=== PATIENT | male | born 1995 | race African-American/Black ===

== ENCOUNTER 2020-02-09 10:59 | Observation (INO) | payer OTHER, SELFPAY ==
[2020-02-09] VITALS (12 sets, daily range): BP systolic 121–168; BP diastolic 67–92; PULSE 55–90; RESP 10–16; TEMP 36.7–37.1; O2SAT 92–99; BMI 33.3
--- NOTE | 2020-02-09 | PATH_ITS ---
[facility] Accession Number: [id number] . 01 Material submitted: . appendix - APPENDIX . 02 Diagnosis: Appendix, Appendectomy: Acute appendicitis with serositis. No evidence of neoplasia. [facility] 02/11/2020 1226 Local . 02 Electronically signed: . Maida Palacios MD, Pathologist NPI- [id number] . 01 Gross description: . Received in formalin, labeled appendix, is an intact appendix (length-6.2 cm, diameter-1.0 cm) with mcfadden-pink smooth shiny serosa and attached mesoappendix (up to 0.8 cm in depth). The resection margin is received stapled. The lumen contains mckenzie-pink solid soft material. The wall is up to 0.3 cm thick. No nodules, masses or lesions are identified. The resection margin is inked blue. Section code: (A1) resection margin en face and national sales representative serial sections; (A2) one-half of the bivalved tip. ([id number]) /MRV 02/10/2020 1114 Local . 02 Pathologist provided ICD-10: K35.80 . 02 CPT . 441343 Performed at: 01 [facility] [address], [place], [place] [id number] MD Rick Leo MD Phone: [phone] Performed at: 02 [facility] [address] [place], [place] [id number] MD Maida Palacios MD Phone: [phone]
--- NOTE | 2020-02-09 13:24 | DI.CT.S_ITS ---
PROCEDURE: CT ABDOMEN PELVIS W CON INDICATIONS: Right lower quadrant tenderness question appy TECHNIQUE: After the administration of intravenous contrast, 5 mm thick sections acquired from the diaphragm to the symphysis. 5 mm coronal and sagittal reformats were acquired. For radiation dose reduction, the following was used: automated exposure control, adjustment of mA and/or kV according to patient size. COMPARISON: None. FINDINGS: Image quality: Excellent. ABDOMEN: Lung bases: Lung bases are clear. Heart size is normal. Solid organs: Liver is enlarged with steatosis. Gallbladder is contracted. Punctate area of low attenuation is noted in the posterior right hepatic lobe on series 3 image 28, too small to definitively characterize. Additional punctate areas are also noted within the remaining portions of the liver, also too small to definitively characterize. No priors are available for comparison.. Biliary system is non dilated. Pancreas enhances normally. Spleen is normal in size and enhancement. 6 mm nodularity of the left adrenal gland is noted. Kidneys demonstrate normal size and enhancement, without hydronephrosis. Peritoneum and bowel: Bowel loops demonstrate normal wall thickness and caliber. No free fluid or air. The appendix is partially obscured. However, partially visualized portion seen best on sagittal and coronal images appear enlarged, measuring approximately 9 mm. Minimal surrounding inflammatory change is noted. No appendicolith. Nodes and vessels: No retroperitoneal or mesenteric adenopathy by size criteria. Aorta and inferior vena cava are normal in size. Miscellaneous: No ventral hernias. PELVIS: Genitourinary: Bladder wall thickness is normal. Miscellaneous: No inguinal hernias or adenopathy. Bones: No suspicious bony lesions. No vertebral body compression fractures. IMPRESSION: 1. Partially visualized portions of the appendix are enlarged with surrounding inflammation raising concern for appendicitis. No appendicolith. The above findings were discussed with Dr. Ryanne Carlton on 02/09/20 at 2:20 PM. Dictated by: Irma Limon M.D. on 02/09/2020 at 14:20 Approved by: Irma Limon M.D. on 02/09/2020 at 14:30
[2020-02-09 14:07] LABS: Add Manual Diff / Slide Review NO; Basophils Absolute Auto 0 /uL (0-100); Basophils Percent Auto 0.3 % (0-2); Eosinophils Absolute Auto 200 /uL (0-450); Eosinophils Percent Auto 1.7 % (2-4); Hematocrit 45.8 % (41-53); Lymphocytes Absolute Auto 1900 /uL (1100-4500); Mean Corpuscular HGB Conc 34.9 % (30-36); Mean Corpuscular Hemoglobin 29.2 PG (26-34); Mean Corpuscular Volume 83.6 fL (80-100); Monocytes Absolute Auto 500 /uL (0-900); Monocytes Percent Auto 5.7 % (3-14); Neutrophils Absolute Auto 6500 /uL (1500-7000); Neutrophils Percent Auto 71.3 % (50-75); Platelet Count 229 X10^3/uL (150-400); Red Blood Cell Count 5.48 X10^6/uL (4.5-5.9); Red Cell Distribution Width 14.7 % (11.6-14.8); White Blood Cell Count 9.1 X10^3/uL (4.5-11.0)
[2020-02-09 14:14] LABS: Prothrombin Time 11.8 SECONDS (10.1-12.7)
[2020-02-09 14:17] LABS: PTT Partial Thromboplastin Tim 39 SECONDS (26.4-36.2)
[2020-02-09 14:22] LABS: Alanine Aminotransferase 29 IU/L (<50); Albumin Globulin Ratio 1.4 (1.0-2.8); Alkaline Phosphatase 90 U/L (38-126); Aspartate Aminotransferase 34 IU/L (17-59); BUN Creatinine Ratio 11.5 (6-22); Bilirubin Total 0.9 mg/dL (0.2-1.3); Blood Urea Nitrogen 15 mg/dL (9-20); Calcium 9.8 mg/dL (8.4-10.2); Carbon Dioxide 28 mmol/L (22-32); Chloride 102 mmol/L (98-107); Estimated Glomerular Filt Rate > 60.0 mL/min (>60); Globulin 3.5 g/dL (1.7-4.1); Glucose 110 mg/dL (70-100); HEMOLYSIS 16 (0-50); Lipase 125 U/L (23-300); Potassium 4.2 mmol/L (3.4-5.1); Sodium 140 mmol/L (137-145); Total Protein 8.5 g/dL (6.3-8.2)
--- NOTE | 2020-02-09 14:42 | ED_ITS ---
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 Begin with mild anorexia and general nausea with mild periumbilical pain. No fevers. Thought he was constipated used a laxative and after a moderate bowel movement did not notice any relief in pain. Continued anorexia over the next day and by a Sunday morning was having increasing peritoneal signs and significant right lower quadrant pain. Related Data Previous Rx's Medication Instructions Recorded oxycodone 5 mg PO Q6H PRN #30 tab 02/09/20 Allergies Allergy/AdvReac Type Severity Reaction Status Date / Time Sulfa (Sulfonamide Allergy Unknown Verified 02/09/20 16:08 Antibiotics) Review of Systems Review of Systems Narrative: Pertinent positive and negative findings as per HPI. He does report chills but no fevers Remainder of review of systems is otherwise unremarkable for Constitutional: weakness ENT: No sore throat, neck pain, ear pain CV: Chest pain, palpitations, dyspnea on exertion Respiratory: Cough, wheeze, dyspnea : Dysuria, hematuria, flank pain, penile discharge or new sexual partners MS: Muscle weakness, numbness, joint swelling or warmth Skin: Rashes, nonhealing lesions Neuro: Syncope, dizziness, tingling Psych: Depression, anxiety, suicidal ideation Endocrine: Fatigue, heat or cold intolerance, very dry skin Heme: Easy bruising or bleeding Allergy: Seasonal rhinorrhea, itchy eyes Patient History Medical History Healthy adult (Acute) Social History Smoking Status: Never smoker Smoking Status: Never smoker alcohol intake frequency: 0-2 drinks per day Substance Use Type: does not use Exam Narrative Exam Narrative: General: Healthy appearing, in no acute distress. Able to give a complete and coherent history. Well-nourished well-developed HEENT: Moist mucous membranes, normal sclera with reactive pupils, Neck: No JVD, supple Respiratory: Lungs are clear to auscultation, no wheezing no rales no rhonchi. Full and symmetrical air movement Cardiac: Regular rate and rhythm no murmurs no bruits Abdomen: Soft, significant tenderness with early rebound in the right lower quadrant with hypoactive bowel tones, no flank pain Skin: Warm and dry, no rashes Neurologic: Grossly neurologically intact with no obvious asymmetries or abnormalities Extremities: No trauma, well perfused Psych: Cooperative, appropriate insight and affect Initial Vital Signs Initial Vital Signs: Vital Signs Temperature 98.8 F 02/09/20 11:17 Pulse Rate 68 02/09/20 11:17 Respiratory Rate 14 02/09/20 11:17 Blood Pressure 156/67 H 02/09/20 11:17 Pulse Oximetry 96 02/09/20 11:17 Course Orders Ordered: Discontinued Medications Bupivacaine HCl (Sensorcaine 0.5% (Pf)) 30 ml INJ NOW ONE Stop: 02/09/20 17:11 Last Admin: 02/09/20 17:10 Dose: 30 ml Documented by: SOPHIE Fentanyl (Sublimaze) 50 mcg IV Q5MIN PRN PRN Reason: Pain, Moderate (4-6) Last Admin: 02/09/20 17:47 Dose: 50 mcg Documented by: Admin: 02/09/20 17:40 Dose: 50 mcg Documented by: RICCARDO Hydromorphone HCl (Dilaudid) 0.5 mg IV NOW ONE Stop: 02/09/20 14:53 Last Admin: 02/09/20 15:37 Dose: 0.5 mg Documented by: CAROLINA Hydromorphone HCl (Dilaudid) 0 mg IV Q5M PRN PRN Reason: Pain, Severe (7-10) Sodium Chloride (Normal Saline 0.9%) 1,000 mls @ 1,000 mls/hr IV BOLUS ONE Stop: 02/09/20 15:51 Last Infusion: 02/09/20 16:02 Dose: 1,000 mls/hr Documented by: Admin: 02/09/20 15:37 Dose: 1,000 mls/hr Documented by: CAROLINA Piperacillin/Tazobactam/Dextrose (Zosyn) 3.375 gm in 50 mls @ 100 mls/hr IV NOW ONE Stop: 02/09/20 15:50 Last Infusion: 02/09/20 16:02 Dose: 0 mls/hr Documented by: Admin: 02/09/20 15:38 Dose: 100 mls/hr Documented by: CAROLINA Lactated Ringer's (Lactated Ringers) 1,000 mls @ 42 mls/hr IV NOW ONE Stop: 02/10/20 16:14 Last Infusion: 02/09/20 18:21 Dose: 0 mls/hr Documented by: Admin: 02/09/20 16:27 Dose: 42 mls/hr Documented by: RICCARDO Metoclopramide HCl (Reglan) 10 mg IV NOW PRN PRN Reason: Nausea And Vomiting Ondansetron HCl (Zofran) 4 mg IV NOW ONE Stop: 02/09/20 14:53 Last Admin: 02/09/20 15:37 Dose: 4 mg Documented by: CAROLINA Ondansetron HCl (Zofran) 4 mg IV NOW PRN PRN Reason: Nausea And Vomiting Oxycodone/Acetaminophen (Percocet 5/325) 2 tab PO PACUNOW PRN PRN Reason: Mild or Moderate Pain Last Admin: 02/09/20 17:53 Dose: 2 tab Documented by: RICCARDO Vital Signs Vital signs: Vital Signs - 8 hr 02/09/20 11:17 Temperature 98.8 F Pulse Rate 68 Respiratory Rate 14 Blood Pressure 156/67 H Pulse Oximetry 96 MDM - Abdominal Pain Medical Records Attestation: I reviewed the patient's medical records. Lab Data Attestation: I reviewed the patient's lab results. Result diagrams: 02/09/20 14:03 02/09/20 14:03 Labs: Lab Results 02/09/20 02/09/20 02/09/20 Range/Units 14:03 14:03 14:03 WBC 9.1 (4.5-11.0) X10^3/uL RBC 5.48 (4.5-5.9) X10^6/uL Hgb 16.0 (13.5-17.5) g/dL Hct 45.8 (41-53) % MCV 83.6 (80-100) fL MCH 29.2 (26-34) PG MCHC 34.9 (30-36) % RDW 14.7 (11.6-14.8) % Plt Count 229 (150-400) X10^3/uL Neut % (Auto) 71.3 (50-75) % Lymph % (Auto) 21.0 L (25-40) % [place] % (Auto) 5.7 (3-14) % Eos % (Auto) 1.7 L (2-4) % Baso % (Auto) 0.3 (0-2) % Neut # (Auto) 6500 (0904-0617) /uL Lymph # (Auto) 1900 (4014-2654) /uL [place] # (Auto) 500 (0-900) /uL Eos # (Auto) 200 (0-450) /uL Baso # (Auto) 0 (0-100) /uL PT 11.8 (10.1-12.7) SECONDS INR 1.0 (0.9-1.3) APTT 39 H (26.4-36.2) SECONDS Sodium 140 (137-145) mmol/L Potassium 4.2 (3.4-5.1) mmol/L Chloride 102 (98-107) mmol/L Carbon Dioxide 28 (22-32) mmol/L BUN 15 (9-20) mg/dL Creatinine 1.30 H (0.66-1.25) mg/dL Estimated GFR > 60.0 (>60) mL/min BUN/Creatinine Ratio 11.5 (6-22) Glucose 110 H (70-100) mg/dL Calcium 9.8 (8.4-10.2) mg/dL Total Bilirubin 0.9 (0.2-1.3) mg/dL AST 34 (17-59) IU/L ALT 29 (<50) IU/L Alkaline Phosphatase 90 (38-126) U/L Total Protein 8.5 H (6.3-8.2) g/dL Albumin 5.0 (3.5-5.0) g/dL Globulin 3.5 (1.7-4.1) g/dL Albumin/Globulin Ratio 1.4 (1.0-2.8) Lipase 125 (23-300) U/L Point of care testing: Urine Dip Bedside Urine Glucose Negative Bedside Urine Bilirubin - Negative Bedside Urine Ketone - Negative Urine Specific [place] 1.015 Bedside Urine Occult Blood - Negative Bedside Urine pH 8.0 Bedside Urine Protein +/- 15 Bedside Urine Urobilinogen - Negative Bedside Urine Nitrite - Negative Bedside Urine Leukocytes - Negative Esterase Imaging Data CT scan - abdomen/pelvis: Radiologist's Impression: IMPRESSION: 1. Partially visualized portions of the appendix are enlarged with surrounding inflammation raising concern for appendicitis. No appendicolith. The above findings were discussed with Dr. Ryanne Carlton on 02/09/20 at 2:20 PM. Dictated by: Irma Limon M.D. on 02/09/2020 at 14:20 MDM Narrative Medical decision making narrative: 24-year-old gentleman with fairly classic history and exam for developing appendicitis confirmed by labs and CT scan. Ca re is reviewed with Dr. Haynes. Patient will be taking to the [facility] Anticipate discharge late this evening after pharmacies are closed. In discussion with Dr. Haynes, Postoperative oxycodone prescription is given to the patient to fill while pharmacies are open to avoid pain control issues upon d ischarge Discharge Plan Departure Patient Disposition: Admitted as Observation Clinical Impression: Acute appendicitis Qualifiers: Acute appendicitis type: unspecified acute appendicitis type Qualified Code(s): K35.80 - Unspecified acute appendicitis Discharge Date/Time: 02/09/20 16:10 Admit Date/Time: 02/09/20 16:01 Admit Provider: Audi Haynes
--- NOTE | 2020-02-09 15:21 | PM.HP.1 ---
History of Present Illness History of Present Illness Date Patient Seen: 02/09/20 Chief complaint: Abdominal pain Narrative: 44-year-old male developed periumbilical pain 2 days ago and became progressively worse now right lower quadrant. Present to the emergency room today underwent a CT that demonstrates acute appendicitis. Mild anorexia no nausea vomiting or diarrhea fever. No prior abdominal surgery. No significant past medical history. Last oral intake was at 11:00 a.m. solid food. Patient History Medical History (Updated 02/09/20 @ 15:16 by Ryanne Carlton MD) Healthy adult (Acute) Family & Social History Safety & Behavioral: Feels Safe in Current Yes Environment Been Physically Hurt or No Threatened By a Person Tobacco & Substance use: Smoking Status Never smoker alcohol intake frequency 0-2 drinks per day Substance Use Type does not use Meds Home Medications and Allergies Home Medications Medication Instructions Recorded Confirmed Type oxycodone 5 mg PO Q6H PRN #30 tab 02/09/20 Rx Allergies Allergy/AdvReac Type Severity Reaction Status Date / Time Sulfa (Sulfonamide Allergy Unknown Verified 02/09/20 11:19 Antibiotics) Review of Systems Review of Systems Narrative: A 10 point review of systems is negative except as noted in the HPI Exam Vital Signs (past 8 hours): - 02/09/20 11:17 Temperature 98.8 F Pulse Rate 68 Respiratory Rate 14 Blood Pressure 156/67 H Pulse Oximetry 96 Oxygen Delivery Method Room Air Narrative Exam Narrative: General-no acute distress, well nourished HEENT-moist mucous membranes, no scleral icterus Neck-supple, no lymphadenopathy Chest- non labored respirations, clear to auscultation bilaterally Cardiac-regular rate no peripheral edema Abdomen-tender right lower quadrant Extremities-warm, well perfused Neurological-alert and oriented, no focal deficits Objective Labs Result Diagrams: 02/09/20 14:03 02/09/20 14:03 Labs: Laboratory Results - last 24 hr 02/09/20 02/09/20 02/09/20 14:03 14:03 14:03 WBC 9.1 RBC 5.48 Hgb 16.0 Hct 45.8 MCV 83.6 MCH 29.2 MCHC 34.9 RDW 14.7 Plt Count 229 Neut % (Auto) 71.3 Lymph % (Auto) 21.0 L [place] % (Auto) 5.7 Eos % (Auto) 1.7 L Baso % (Auto) 0.3 Neut # (Auto) 6500 Lymph # (Auto) 1900 [place] # (Auto) 500 Eos # (Auto) 200 Baso # (Auto) 0 PT 11.8 INR 1.0 APTT 39 H Sodium 140 Potassium 4.2 Chloride 102 Carbon Dioxide 28 BUN 15 Creatinine 1.30 H Estimated GFR > 60.0 BUN/Creatinine Ratio 11.5 Glucose 110 H Calcium 9.8 Total Bilirubin 0.9 AST 34 ALT 29 Alkaline Phosphatase 90 Total Protein 8.5 H Albumin 5.0 Globulin 3.5 Albumin/Globulin Ratio 1.4 Lipase 125 Assessment & Plan Assessment and plan (1) Acute appendicitis: Qualifiers: Acute appendicitis type: unspecified acute appendicitis type Qualified Code(s): K35.80 - Unspecified acute appendicitis Current visit: Yes Status: Acute Assessment & Plan narrative: 24-year-old healthy male with acute appendicitis. I reviewed CT scan which demonstrates acute appendicitis no abscess. We discussed the nature of the acute appendicitis and its management including medical and surgical therapy. My offered him a laparoscopic possible open appendectomy. We discussed the risks of the procedure including bleeding infection damage to surrounding structures hernia formation and anesthetic risks. His questions have been answered he is in agreement with this plan. Will plan for surgery now with likely discharge home from postoperative care unit.
[2020-02-09] MEDS: ONDANSETRON 4 MG/2 ML INJ IV (15:37)
[2020-02-09] MEDS: HYDROMORPHONE 0.5 MG INJ IV (15:37)
[2020-02-09] MEDS: SODIUM CHLORIDE 0.9% 1,000 ML 1000 ML IV (15:37)
[2020-02-09] MEDS: PIPERACILLIN-TAZO 3.375 GM/50 ML FROZ.PIGGY IV (15:38)
[2020-02-09] MEDS: LACTATED RINGERS 1,000 ML 42 ML IV (16:27)
[2020-02-09] MEDS: BUPIVACAINE 0.5% (PF) VIAL 30 ML INJ (17:10)
--- NOTE | 2020-02-09 17:22 | PM.OP.1 ---
Operative Date/Time/Diagnoses Date of procedure: 02/09/20 Time of procedure: 17:22 Pre-op diagnosis: Acute appendicitis Post-op diagnosis: same Procedure & Clinicians Procedure: Laparoscopic appendectomy Same procedure as scheduled: Yes Indications: Acute appendicitis Surgeon: Audi Haynes Click Yes if Unassisted: Yes Anesthesia Type: General Operative Notes Findings: Retrocecal acute non perforated appendicitis Specimen(s): other (Appendix) Estimated Blood Loss (mL): 10 Procedure in detail: Patient was brought to the operating room placed supine on the table. Bilateral lower extremity compression devices were applied. They were induced and intubated with an endotracheal tube. They received 3.375 g of Zosyn prior to skin incision. They were prepped and draped in sterile fashion. Time-out was performed to ensure the correct patient procedure necessary equipment within the operating room. The skin was infiltrated with 0.25% bupivacaine. A infraumbilical incision was made the umbilical stalk was grasped and elevated and incision was made and the abdomen was entered atraumatically. A 12 mm balloon trocar was then placed into the incision and pneumoperitoneum was established. The scope was then inspected abdomen inspected and there was no evidence of injury upon entry. Two 5 mm working ports were then placed supra pubic and in the left lower quadrant. The small bowel was then swept to the upper aspect of the abdomen. The tenie were followed to the base of the cecum where the appendix was identified. It was partially retrocecal and I mobilized the cecum medially in order to completely expose it by incising the white line of Toldt. The appendix was was mobilized from its lateral attachements.. It was acutely inflamed but not perforated. The appendix was grasped and a window within the mesentery was made. The mesentery to the appendix was taken with the stapler using the vascular staple load, EndoGIA 45mm white load. The appendix was then transected from the cecum at its base using the Endo GI stapler with a blue load. The specimen was removed using the Endo-Catch bag. The abdomen was irrigated and hemostasis was checked and staple lines were carefully inspected. The ports were then removed under direct visualization. The umbilical fascial incision was closed with 0 Vicryl in a figure-eight fashion. The skin wounds were irrigated and closed with Monocryl followed by the application of Dermabond. Sponge instrument count at the end of the operation was correct. The patient tolerated procedure well was extubated and transferred to the postoperative care unit in stable condition Complications: none Post-operative Condition: stable Disposition: same day surgery
[2020-02-09] MEDS: fentaNYL 100 MCG/2 ML INJ 50 MCG IV ×2 (17:40→17:47)
[2020-02-09] MEDS: OXYCODONE/ACETAMINOPHEN 5/325 TABLET 2 TAB PO (17:53)
== END 2020-02-09 18:40 | disposition home or self-care (01) ==
LOC: ED 15:16 → AC 16:02
PROVIDERS: Admitting Provider Surgery; Emergency Provider Emergency Medicine; Referring Provider Emergency Medicine; Visit Provider Surgery
PROC: 0DTJ4ZZ Resection of Appendix, Percutaneous Endoscopic Approach (ICD-10-PCS; CPT 44970; principal; 2020-02-09 16:00)
DX: K35.80 Unspecified acute appendicitis (principal); R10.31 Right lower quadrant pain
CPT/HCPCS: 44970; 36415; 74177; 80053; 81003; 83690; 85025; 85610; 85730; 96365; 96375; 99220; 99284; G0378; J0330; J1100; J1170; J1885; J2250; J2405; J2543; J2704; J3010; Q9967

== ENCOUNTER 2020-02-11 18:27 | Emergency (ER) | payer OTHER, SELFPAY ==
[2020-02-11 18:30] VITALS: BP 127/57; PULSE 67; RESP 18; TEMP 36.4; O2SAT 98
--- NOTE | 2020-02-11 19:14 | ED_ITS ---
HPI - Abdominal Pain General Chief Complaint: Abdominal Pain Stated Complaint: lwr abdomen surgery, incision site swelling/pain Time Seen by Provider: 02/11/20 18:39 Source: patient Mode of arrival: Ambulatory Limitations: no limitations History of Present Illness HPI narrative: 24M non smoker presents with family for evaluation of abnormal brusiing to his periumbilical area. He had a lap appy here a few days ago which went well. Today he started feeling some discomfort just below his umbilical incision and over the day he has developed dark purple bruising. He denies fever or chills. He denies any significant pain. He is not dizzy, weak or lightheaded. He has no CP or SOB. He is otherwise well and free of complaint. MD complaint: other Onset (ago): hour(s) Location: periumbilical Severity: mild Quality: cramping Radiation: none Relieving factors: nothing Exacerbating factors: nothing Associated symptoms: other (periumbilical hematoma) Related Data Previous Rx's Medication Instructions Recorded oxycodone 5 mg PO Q6H PRN #30 tab 02/09/20 Allergies Allergy/AdvReac Type Severity Reaction Status Date / Time Sulfa (Sulfonamide Allergy Unknown Verified 02/09/20 16:08 Antibiotics) Review of Systems Constitutional Constitutional: Denies chills, Denies fatigue, Denies fever(s), Denies frequent falls, Denies lethargy and Denies weakness Eyes Eyes: Denies change in vision, Denies eye discharge, Denies irritation and Stephane es loss of vision ENT Ears, Nose, Mouth, and Throat: Denies change in voice, Denies dizziness, Denies neck pain, Denies sore throat and Denies throat swelling Cardiovascular Cardiovascular: Denies chest pain, Denies irregular heart rhythm, Denies lightheadedness, Denies palpitations, Denies dyspnea, Denies dyspnea on exertion and Denies orthopnea Respiratory Respiratory: Denies cough, Denies dyspnea, Denies dyspnea on exertion and Denies wheezing Gastrointestinal Gastrointestinal: Denies abdominal pain, Denies change in bowel habits, Denies diarrhea, Denies nausea and Denies vomiting Genitourinary Genitourinary: Denies hematuria, Denies flank pain, Denies urinary incontinence and Denies urinary urgency Musculoskeletal Musculoskeletal: Denies back pain, Denies muscle weakness, Denies neck pain, Denies numbness and Denies tingling Integumentary/Breasts Skin/Breast: Denies pruritus, Denies erythema, Denies rash, Reports unusual bruising and Denies wounds Neurologic Neurologic: Denies behavioral changes, Denies confusion, Denies dizziness, Denies frequent falls, Denies loss of vision, Denies numbness, Denies tingling and Denies weakness Psychiatric Psychiatric: Denies anxiety, Denies behavioral changes, Denies confusion, Denies depression, Denies homicidal ideation and Denies suicidal ideation Endocrine Endocrine: Denies fatigue, Denies flushing and Denies palpitations Hematologic/Lymphatic Hematologic/Lymphatic: Denies easy bruising Allergic/Immunologic Allergic/Immunologic: Denies urticaria, Denies throat swelling and Denies wheezing Patient History Medical History Healthy adult (Acute) Social History Smoking Status: Never smoker Smoking Status: Never smoker alcohol intake frequency: 0-2 drinks per day Substance Use Type: does not use Exam Narrative Exam Narrative: GENERAL: [24] year old patient appears stated age. Well-nourish ed, well-developed patient, in mild distress. HEAD: Atraumatic. Normocephalic. EYES: Pupils equal round and reactive. Extraocular motions intact. No scleral icterus. No injection or drainage. ENT: Nose without bleeding, purulent drainage. Throat without erythema, tonsillar hypertrophy or exudate. Airway patent. NECK: Trachea midline. Non tender CARDIOVASCULAR: Regular rate and rhythm without murmurs, gallops, or rubs. RESPIRATORY: Clear to auscultation. Breath sounds equal bilaterally. No wheezes, rales, or rhonchi. GASTROINTESTINAL: Abdomen soft, incisions are clean, dry and intact. Bowel sounds present in all 4 quadrants. 5 cm x 5 cm dark purple hematoma just inferior to umbilical incision EXTREMITIES: No edema or joint tenderness. BACK: Nontender without deformity or crepitance. No flank tenderness. NEURO: AOx3. SKIN: No rash or erythema of visible areas Initial Vital Signs Initial Vital Signs: Vital Signs Temperature 97.5 F L 02/11/20 18:30 Pulse Rate 67 02/11/20 18:30 Respiratory Rate 18 02/11/20 18:30 Blood Pressure 127/57 L 02/11/20 18:30 Pulse Oximetry 98 02/11/20 18:30 Course Course Course Narrative: call to Dr. Haynes, formation fracturing operator surgeon, performed appy a few days ago. No need for advanced imaging, he will see patient in the office. He is aware of slight drop in H/H. Orders Ordered: ED Orders 02/11/20 19:12 Basic Metabolic Panel Stat Complete Blood Count AUTO DIFF Stat Type and Screen Stat Discontinued Medications Sodium Chloride (Normal Saline 0.9%) 1,000 mls @ 1,000 mls/hr IV BOLUS ONE Stop: 02/11/20 20:04 Last Infusion: 02/11/20 20:08 Dose: 0 mls/hr Documented by: Admin: 02/11/20 19:35 Dose: 1,000 mls/hr Documented by: JANELLE Vital Signs Vital signs: Vital Signs - 8 hr 02/11/20 18:30 02/11/20 19:23 02/11/20 20:09 Temperature 97.5 F L Pulse Rate 67 69 68 Respiratory Rate 18 14 18 Blood Pressure 127/57 L 120/76 Blood Pressure [Right Arm] 124/66 Pulse Oximetry 98 100 100 MDM - Abdominal Pain Lab Data Result diagrams: 02/11/20 19:12 02/11/20 19:12 Labs: Lab Results 02/11/20 02/11/20 02/11/20 Range/Units 19:12 19:12 19:12 WBC 8.0 (4.5-11.0) X10^3/uL RBC 3.71 L (4.5-5.9) X10^6/uL Hgb 10.9 L (13.5-17.5) g/dL Hct 31.2 L (41-53) % MCV 84.1 (80-100) fL MCH 29.4 (26-34) PG MCHC 35.0 (30-36) % RDW 14.5 (11.6-14.8) % Plt Count 183 (150-400) X10^3/uL Neut % (Auto) 59.1 (50-75) % Lymph % (Auto) 33.2 (25-40) % [place] % (Auto) 6.3 (3-14) % Eos % (Auto) 1.1 L (2-4) % Baso % (Auto) 0.3 (0-2) % Neut # (Auto) 4700 (0798-5891) /uL Lymph # (Auto) 2700 (8509-1487) /uL [place] # (Auto) 500 (0-900) /uL Eos # (Auto) 100 (0-450) /uL Baso # (Auto) 0 (0-100) /uL Sodium 138 (137-145) mmol/L Potassium 3.7 (3.4-5.1) mmol/L Chloride 101 (98-107) mmol/L Carbon Dioxide 28 (22-32) mmol/L BUN 19 (9-20) mg/dL Creatinine 1.24 (0.66-1.25) mg/dL Estimated GFR > 60.0 (>60) mL/min BUN/Creatinine Ratio 15.3 (6-22) Glucose 93 (70-100) mg/dL Calcium 8.9 (8.4-10.2) mg/dL Blood Type O Positive Antibody Screen Negative Discharge Plan Departure Patient Disposition: Home Clinical Impression: Postoperative hematoma Qualifiers: Surgical complication system/body Area: subcutaneous tissue Procedure type: non-dermatologic Qualified Code(s): L76.32 - Postprocedural hematoma of skin and subcutaneous tissue following other procedure Discharge Date/Time: 02/11/20 20:11 Instructions: DI for Hematoma (Bruise) Activity Restrictions/Additional Instructions: *You have been diagnosed with [post-operative hematoma ] *What to do: *Continue to take medications as directed. It is ok to take an extra Oxycodone every once in awhile if needed, but only sparingly *Follow up with your surgeon, Dr. Haynes, as previously planned. I called him about your visit today and he is aware and in agreement with this plan. *Return to ER if you should have any new, worsening or concerning symptoms, such as [ severe pain, fever >101F, lightheadedness, shortness of breath or other bothersome symptoms] Prescriptions: No Action oxycodone 5 mg tablet 5 mg PO Q6H PRN (Reason: pain) Qty: 30 RF: 0 Referrals: Rae Dickerson [Primary Care Provider] - Audi Haynes MD [Physician] -
[2020-02-11 19:23] VITALS: BP 124/66; PULSE 69; RESP 14; O2SAT 100
--- NOTE | 2020-02-11 19:24 | PC.NURSE ---
Patient stated that he has been drinking a large amount of water and has not been able to urinate all day. He says that when he does go tp urinate that he dribbles. This has been happening since before the Lap Appy. He also reports not stooling very much. He stated that he sits at home and plays video games while on his pain medication.
[2020-02-11] MEDS: SODIUM CHLORIDE 0.9% 1,000 ML 1000 ML IV (19:35)
[2020-02-11 19:37] LABS: BUN Creatinine Ratio 15.3 (6-22); Blood Urea Nitrogen 19 mg/dL (9-20); Calcium 8.9 mg/dL (8.4-10.2); Carbon Dioxide 28 mmol/L (22-32); Chloride 101 mmol/L (98-107); Estimated Glomerular Filt Rate > 60.0 mL/min (>60); Glucose 93 mg/dL (70-100); HEMOLYSIS < 15 (0-50); Potassium 3.7 mmol/L (3.4-5.1); Sodium 138 mmol/L (137-145)
[2020-02-11 19:43] LABS: Add Manual Diff / Slide Review NO; Basophils Absolute Auto 0 /uL (0-100); Basophils Percent Auto 0.3 % (0-2); Eosinophils Absolute Auto 100 /uL (0-450); Eosinophils Percent Auto 1.1 % (2-4); Hematocrit 31.2 % (41-53); Hemoglobin 10.9 g/dL (13.5-17.5); Lymphocytes Absolute Auto 2700 /uL (1100-4500); Lymphocytes Percent Auto 33.2 % (25-40); Mean Corpuscular Hemoglobin 29.4 PG (26-34); Mean Corpuscular Volume 84.1 fL (80-100); Monocytes Absolute Auto 500 /uL (0-900); Monocytes Percent Auto 6.3 % (3-14); Neutrophils Absolute Auto 4700 /uL (1500-7000); Neutrophils Percent Auto 59.1 % (50-75); Platelet Count 183 X10^3/uL (150-400); Red Blood Cell Count 3.71 X10^6/uL (4.5-5.9); Red Cell Distribution Width 14.5 % (11.6-14.8)
[2020-02-11 20:09] VITALS: BP 120/76; PULSE 68; RESP 18; O2SAT 100
== END 2020-02-11 20:11 | disposition home or self-care (01) ==
PROVIDERS: Emergency Provider Emergency Medicine
DX: L76.32 Postprocedural hematoma of skin and subcutaneous tissue following other procedure (principal)
CPT/HCPCS: 36415; 80048; 85025; 86850; 86900; 86901; 96360; 99284

== ENCOUNTER 2020-02-12 10:50 | Observation (INO) | payer OTHER, SELFPAY ==
[2020-02-12] VITALS (22 sets, daily range): BP systolic 117–151; BP diastolic 49–96; PULSE 59–84; RESP 11–20; TEMP 36.4–37.4; O2SAT 94–100; BMI 34.2
--- NOTE | 2020-02-12 11:12 | ED_ITS ---
HPI - Recheck/Abnormal Lab/Rx General Chief Complaint: Recheck/Abnormal Lab/Rx Stated Complaint: Bleeding from stomach Time Seen by Provider: 02/12/20 10:56 Source: patient Mode of arrival: Ambulatory Limitations: no limitations History of Present Illness HPI narrative: CC: Bleeding Abdominal Wall Hematoma HPI: The patient is a 24-year-old male who on SundayFebruary 08 had an appendectomy performed. Postoperatively he developed bleeding and a hematoma into his abdominal wall. He developed extensive bruising over his abdomen and was seen last night for bleeding. His bleeding and hemoglobin was stable and he was sent home. The patient reports that he was having a bowel movement today straining and he developed recurrent bleeding from his laparoscopic incision at the umbilicus and the superior margin of the abdominal wall hematoma. The patient had profuse bleeding that he came into the emergency department to be evaluated. He has not been dizzy or lightheaded. He has had no palpitations chest pain shortness of breath or cough. He denies being on any blood thinners. He has had no nausea vomiting diarrhea. Related Data Previous Rx's Medication Instructions Recorded oxycodone 5 mg PO Q6H PRN #30 tab 02/09/20 Allergies Allergy/AdvReac Type Severity Reaction Status Date / Time Sulfa (Sulfonamide Allergy Unknown Verified 02/12/20 10:57 Antibiotics) Review of Systems Review of Systems Narrative: All review of systems were negative except for those mentioned in the history of present illness. Patient History Medical History Healthy adult (Acute) Social History household members: none Smoking Status: Never smoker alcohol intake: never Smoking Status: Never smoker alcohol intake frequency: holidays/special occasions only Substance Use Type: does not use Exam Narrative Exam Narrative: PHYSICAL EXAM: CONSTITUTIONAL: Awake, Alert, Oriented, Coherent, Cooperative in NAD. Does not appear toxic or ill. HEAD: AT/NC NOSE:No epistaxis or nasal drainage NECK: Supple, no obvious JVD, Trachea is midline without stridor, no palpable LN. SPINE: Palpationof the cervical, Thoracic, Lumbar or Sacral spine reveals no gross deformity or tenderness. No CVA tenderness. THORAX: No deformity, retractions, chest wall tenderness. LUNGS: Clear, symmetrical breath sounds without respiratory distress. HEART: Normal heart tones, regular rhythm and rate without murmur. ABDOMEN: The patient's has a large ecchymotic hematoma in the abdominal wall in the center of his abdomen inferior to his umbilical laparoscopic incision. The patient is bleeding from this laparoscopic incision. The area the hematoma is tender to palpation without erythema or warmth. His abdomen is otherwise nontender. EXTREMITIES: No edema, tenderness or cyanosis. SKIN: No other rash, areas of bruising, petechiae or purpura. NEURO: Awake, alert, oriented, conversive, cranial nerves II-XII are symmetrical , moves all 4 extremities and is ambulatory. Initial Vital Signs Initial Vital Signs: Vital Signs Temperature 98.8 F 02/12/20 10:53 Pulse Rate 61 02/12/20 10:53 Respiratory Rate 14 02/12/20 10:53 Blood Pressure 151/88 H 02/12/20 10:53 Pulse Oximetry 98 02/12/20 10:53 Course Course Course Narrative: 11:13: Clinically I believe that the patient is bleeding from his operative site just below the umbilicus probably from his hematoma. Call has been placed into Dr. Matthews. A CBC, INR and PTT remains pending. 11:22: discussed with Dr. Matthews, will order abdominal wall US checking for hematoma. Byron will be down to evaluate. 1334: The patient was seen by and is being taken to surgery for exploration, he cautery and hemostasis of a postoperative abdominal wall hematoma. Orders Ordered: ED Orders 02/12/20 11:23 US abdomen limited Stat 02/12/20 11:50 Complete Blood Count AUTO DIFF Stat Partial Thromboplastin Time Stat Prothrombin Time INR Stat Fentanyl (Sublimaze) 0 mcg IV Q5M PRN PRN Reason: Pain, Moderate (4-6) Hydromorphone HCl (Dilaudid) 0 mg IV Q5M PRN PRN Reason: Pain, Moderate (4-6) Metoclopramide HCl (Reglan) 10 mg IV NOW PRN PRN Reason: Nausea And Vomiting Ondansetron HCl (Zofran) 4 mg IV NOW PRN PRN Reason: Nausea And Vomiting Oxycodone/Acetaminophen (Percocet 5/325) 1 tab PO PACUNOW PRN PRN Reason: Mild or Moderate Pain Discontinued Medications Bupivacaine HCl/Epinephrine Bitart (Sensorcaine 0.25% W/ Epi (Pf)) 60 ml INJ NOW ONE Stop: 02/12/20 16:02 Last Admin: 02/12/20 16:01 Dose: 60 ml Documented by: MAN Cefazolin Sodium (Ancef Vial) 1 gm IV NOW ONE Stop: 02/12/20 14:38 Last Admin: 02/12/20 14:38 Dose: 1 gm Documented by: ZAIRE Cefazolin Sodium 3 gm/ Sodium (Chloride) 100 mls @ 200 mls/hr IV INTRA-OP ONE Stop: 02/12/20 12:41 Last Admin: 02/12/20 14:30 Dose: Not Given Documented by: ZAIRE Cefazolin Sodium/Dextrose (Ancef) 2 gm in 100 mls @ 200 mls/hr IV NOW ONE Stop: 02/12/20 15:00 Last Infusion: 02/12/20 14:35 Dose: 0 mls/hr Documented by: Admin: 02/12/20 14:25 Dose: 200 mls/hr Documented by: ZAIRE Vital Signs Vital signs: Vital Signs - 8 hr 02/12/20 10:53 02/12/20 11:39 Temperature 98.8 F Pulse Rate 61 63 Respiratory Rate 14 15 Blood Pressure 151/88 H Blood Pressure [Left Arm] 133/61 Pulse Oximetry 98 99 MDM - Recheck/Abnormal Lab/Rx Lab Data Result diagrams: 02/12/20 11:50 Labs: Lab Results 02/12/20 02/12/20 Range/Units 11:50 11:50 WBC 6.8 (4.5-11.0) X10^3/uL RBC 3.58 L (4.5-5.9) X10^6/uL Hgb 10.7 L (13.5-17.5) g/dL Hct 30.0 L (41-53) % MCV 83.7 (80-100) fL MCH 29.8 (26-34) PG MCHC 35.7 (30-36) % RDW 14.8 (11.6-14.8) % Plt Count 177 (150-400) X10^3/uL Neut % (Auto) 63.2 (50-75) % Lymph % (Auto) 27.4 (25-40) % [place] % (Auto) 7.2 (3-14) % Eos % (Auto) 1.9 L (2-4) % Baso % (Auto) 0.3 (0-2) % Neut # (Auto) 4300 (5329-2439) /uL Lymph # (Auto) 1900 (9135-9911) /uL [place] # (Auto) 500 (0-900) /uL Eos # (Auto) 100 (0-450) /uL Baso # (Auto) 0 (0-100) /uL PT 11.1 (10.1-12.7) SECONDS INR 1.0 (0.9-1.3) APTT 35 D (26.4-36.2) SECONDS Discharge Plan Departure Patient Disposition: Admitted as Observation Clinical Impression: Hematoma of abdominal wall Qualifiers: Encounter type: initial encounter Qualified Code(s): S30.1XXA - Contusion of abdominal wall, initial encounter Discharge Date/Time: 02/12/20 13:38 Admit Date/Time: 02/12/20 12:53 Admit Provider: Hailey Matthews
--- NOTE | 2020-02-12 11:23 | DI.US.S_ITS ---
PROCEDURE: US ABDOMEN LIMITED INDICATIONS: infraumbilical post op hematoma, check extent of hematoma TECHNIQUE: Real-time focused scanning was performed of the abdomen, with image documentation. COMPARISON: [facility], CT, CT ABDOMEN PELVIS W CON, 02/09/2020, 14:01. FINDINGS: Ultrasound was performed in the area of interest. No hematoma is present. There is a small amount of free fluid in the right lower quadrant. IMPRESSION: 1. No intra-abdominal hematoma. 2. A small amount of free fluid in the right lower quadrant. Dictated by: Armaan Gomes M.D. on 02/12/2020 at 11:59 Approved by: Armaan Gomes M.D. on 02/12/2020 at 12:00
[2020-02-12 12:01] LABS: Add Manual Diff / Slide Review NO; Basophils Absolute Auto 0 /uL (0-100); Basophils Percent Auto 0.3 % (0-2); Eosinophils Absolute Auto 100 /uL (0-450); Eosinophils Percent Auto 1.9 % (2-4); Hemoglobin 10.7 g/dL (13.5-17.5); Lymphocytes Absolute Auto 1900 /uL (1100-4500); Lymphocytes Percent Auto 27.4 % (25-40); Mean Corpuscular HGB Conc 35.7 % (30-36); Mean Corpuscular Hemoglobin 29.8 PG (26-34); Mean Corpuscular Volume 83.7 fL (80-100); Monocytes Absolute Auto 500 /uL (0-900); Monocytes Percent Auto 7.2 % (3-14); Neutrophils Absolute Auto 4300 /uL (1500-7000); Neutrophils Percent Auto 63.2 % (50-75); Platelet Count 177 X10^3/uL (150-400); Red Blood Cell Count 3.58 X10^6/uL (4.5-5.9); Red Cell Distribution Width 14.8 % (11.6-14.8); White Blood Cell Count 6.8 X10^3/uL (4.5-11.0)
[2020-02-12 12:06] LABS: Prothrombin Time 11.1 SECONDS (10.1-12.7)
--- NOTE | 2020-02-12 12:06 | PC.NURSE ---
Patient ambulated to the bathroom and had to go poop.
--- NOTE | 2020-02-12 12:08 | PM.CN ---
History of Present Illness Consult details Date Patient Seen: 02/12/20 Time Patient Seen: 12:08 Chief complaint: Bleeding from stomach Narrative: This is a 24 yo man with history of appendectomy three days ago. He has returned to the ER and his PCP's office for post operative bleeding at the umbilical port site. He has passed gas but no stool since surgery. However he just had a BM in the ER bathroom. Reportedly it was non black, non bloody. He had an abdominal US and CBC in the ER. Hgb is 10.7 from 10.9 yesterday. US shows no significant intra abdominal fluid collection. ROS: As per HPI. Denies nausea, vomiting. Has been tolerating PO. Denies dysuria, hematuria, cough/cold/fever symptoms, denies SOB. 10 system review otherwise negative. PE: GENERAL: Well groomed and cooperative. Appears stated age. Answers questions promptly and appropriately. Vital signs noted. HENT: Normocephalic, atraumatic. Hearing intact. Oral mucosa is pink and moist. EYES: Conjunctiva pink, sclera white, no periorbital swelling. CARDIOVASCULAR: Regular rate. No pedal edema. RESPIRATORY: Non-tachypneic, breathing comfortably on room air. GASTROINTESTINAL: Abdomen soft and non-distended; abdominal wall 6cm x 8cm infra umbilical hematoma with rudolph blood draining from the infra umbilical incision; TTP in the ecchymotic area GENITALURINARY: No flank tenderness. MUSCULOSKELETAL: Equal tone and mass bilaterally. SKIN: Warm, dry, soft, appropriate color for ethnicity. No other lesions, rashes, or wounds. NEURO: Alert and Oriented X 3. No gross sensory deficits, or cognitive issues. PSYCH: Appropriate affect and mood. Past medical history: Acute appendicitis 3 days ago, denies other significant medical history Past surgical history: Laparoscopic appendectomy 3 days ago, denies other surgical history Family history: Denies family history of colorectal disorders or bleeding disorders [place] has been isolated to his own room with social distancing Allergies: Sulfa Medications: Oxycodone for postoperative pain Meds Home Medications and Allergies Home Medications Medication Instructions Recorded Confirmed Type oxycodone 5 mg PO Q6H PRN #30 tab 02/09/20 Rx Allergies Allergy/AdvReac Type Severity Reaction Status Date / Time Sulfa (Sulfonamide Allergy Unknown Verified 02/12/20 10:57 Antibiotics) Exam Vital Signs (past 8 hours): - 02/12/20 10:53 02/12/20 11:39 Temperature 98.8 F Pulse Rate 61 63 Respiratory Rate 14 15 Blood Pressure 151/88 H Blood Pressure [Left Arm] 133/61 Pulse Oximetry 98 99 Oxygen Delivery Method Room Air Objective Imaging US - abdomen: My impression: No major fluid collection Radiologist's impression: [address] [address] Ultrasound Report Signed Patient: Kendall Amaro RMR#: [id number] : 1995Acct:[id number] Age/Sex: MDate of Service: 02/12/20 Loc: ED Accession Number: [id number] Procedure: US abdomen limited Ordering Provider: Liam Monae MD PROCEDURE: US ABDOMEN LIMITED INDICATIONS: infraumbilical post op hematoma, check extent of hematoma TECHNIQUE: Real-time focused scanning was performed of the abdomen, with image documentation. COMPARISON: [facility], CT, CT ABDOMEN PELVIS W CON, 02/09/2020, 14:01. FINDINGS: Ultrasound was performed in the area of interest. No hematoma is present. There is a small amount of free fluid in the right lower quadrant. IMPRESSION: 1. No intra-abdominal hematoma. 2. A small amount of free fluid in the right lower quadrant. Dictated by: Armaan Gomes M.D. on 02/12/2020 at 11:59 Approved by: Armaan Gomes M.D. on 02/12/2020 at 12:00 Labs Result Diagrams: 02/12/20 11:50 Labs: Laboratory Results - last 24 hr 02/12/20 02/12/20 11:50 11:50 WBC 6.8 RBC 3.58 L Hgb 10.7 L Hct 30.0 L MCV 83.7 MCH 29.8 MCHC 35.7 RDW 14.8 Plt Count 177 Neut % (Auto) 63.2 Lymph % (Auto) 27.4 [place] % (Auto) 7.2 Eos % (Auto) 1.9 L Baso % (Auto) 0.3 Neut # (Auto) 4300 Lymph # (Auto) 1900 [place] # (Auto) 500 Eos # (Auto) 100 Baso # (Auto) 0 PT 11.1 INR 1.0 Assessment & Plan Assessment and plan (1) Postoperative hematoma: Qualifiers: Procedure type: non-dermatologic Surgical complication system/body Area: subcutaneous tissue Qualified Code(s): L76.32 - Postprocedural hematoma of skin and subcutaneous tissue following other procedure Current visit: No Status: Acute Assessment & Plan narrative: 24 yo man with abdominal wall hematoma at the site of his surgical port from laparoscopic appendectomy three days ago. Risks and benefits of wound exploration versus simple pressure dressing were discussed. The patient has returned twice to the ER, and 3 times to his primary care provider's office since surgery on the . He continues to poor out blood from the wound every time he stands up. I recommended wound exploration for definitive management of this ongoing bleeding. 25 minutes were spent face to face with the patient. More than 50% of the time was spent in counseling and co-ordination of care regarding wound management, bleeding, need for definitive hemostasis. Risks and benefits of wound exploration surgery were discussed, including risk of bleeding, infection, damage to nearby structures, need for additional procedures, ongoing bleeding, recurrent bleeding, scarring, delayed wound healing. The patient desires to proceed with wound exploration. Plan: To OR for wound exploration under anesthesia Dispo pending outcome of surgery
[2020-02-12 12:09] LABS: PTT Partial Thromboplastin Tim 35 SECONDS (26.4-36.2)
--- NOTE | 2020-02-12 12:56 | PC.NURSE ---
Patient in room stating that he is nervous about his procedure, requests something to help him relax after signing the surgical consent and before going to the surgical department.
[2020-02-12] MEDS: CEFAZOLIN 2 GM/100 ML FROZ.PIGGY IV (14:25)
--- NOTE | 2020-02-12 14:27 | SUR.OPER ---
Supine on padded OR bed, head on pillow, arms secured on padded arm boards at <90 degrees abduction, legs uncrossed, safety belt at thigh, tape over blanket over lower legs.
[2020-02-12] MEDS: CEFAZOLIN 1 GM VIAL IV (14:38)
[2020-02-12] MEDS: BUPIVACAINE 0.25% W/ EPI 30 ML VIAL 60 ML INJ (16:01)
[2020-02-12] MEDS: HYDROMORPHONE 2 MG INJ IV ×4 (16:45→17:06)
--- NOTE | 2020-02-12 17:15 | SUR.PHASEI ---
care transferred to Richard VOGT, report given.
--- NOTE | 2020-02-12 17:20 | PM.OP.1 ---
Operative Date/Time/Diagnoses Date of procedure: 02/12/20 Time of procedure: 17:20 Pre-op diagnosis: Bleeding surgical wound Post-op diagnosis: other (post appendectomy bleed) Procedure & Clinicians Procedure: 1) Local wound exploration 2) Laparoscopic exploration and washout of blood and clots 3) Hemostasis of perappendiceal bleeding 4) UCHE drain placement Same procedure as scheduled: No Indications: This is a 24 yo man who had an emergency appendectomy three days ago for acute appendicitis. He continued to complain about bleeding from his umbilical port site and a large bruise on his skin around the port site. In the ER he had labs which showed anemia, but stable Hgb level as compared to 24 hours prior. He had an abdominal US which reported no significant abdominal fluid collections. He was taken to the OR for local wound exploration and hemostasis. In the OR he was found to have minimal bleeding from the port site, but blood welling up from within the abdomen. Surgeon: Hailey Matthews Click Yes if Unassisted: Yes Anesthesia Type: General Operative Notes Findings: Minimal bleeding from infra umbilical port site. [place] up of blood from within the abdomen. Copious blood and clots found within the abdomen on exploration. Raw surface with minimal oozing of the right retroperitoneum. No specific bleeding vessel was encountered. Closure Type: primary Specimen(s): none sent Prosthetic devices, grafts, tissues, transplants, or devices: 19 round ayana drain Blood products transfused: none Procedure in detail: The patient was brought into the operating room and placed supine on the OR table. Sequential compression devices were placed on both legs and turned on. Appropriate perioperative antibiotics were given prior to the start of surgery. MAC sedation was induced. The abdomen was prepped and draped in sterile fashion. Surgical time-out was conducted. Local anesthetic was injected under the skin just inferior to the umbilicus at the infra umbilical port site. The skin glue was removed and the sutures were removed from the incision. The wound was explored, and a few small bleeding points were cauterized. I grasped the fascial sutures from the Montoya port closure and cut them. I increased the skin incision to 2cm long and used [place] retractors to exposed the fascia. No significant bleeding points were identified, but blood kept welling up from the peritoneal opening. I was not able to comfortably convince myself that the blood was not coming from an intra abdominal source, so I elected to go ahead and put a laparoscopic port in and look. Dr. Salomon then went ahead and put the patient under general anesthesia intubated him with an ETT. Quinonez catheter was placed sterilely in the bladder. A 12mm Montoya port was placed through the port site, and the abdomen was insufflated to 15mm Hg. I placed a camera through the port, and took a look around. There was no injury from port placement. Two additional ports were placed in a similar fashion in the suprapubic position and left lower quadrant through the prior port incisions. There was a pool of blood and clots in the right lower quadrant, pooled blood in the pelvis, left lower quadrant, and right perihepatic space. Using the suction electric meter repairer apprentice, I washed out and suctioned the majority of blood and clots out of the abdomen. There was roughly 600mL of blood and clots in the abdomen. Once the blood and clots were suctioned free, I was able to get a close look at the cecum and retroperitoneum in the area of the appendectomy dissection. There was some rough raw surface of the retropertioneum with some minor raw surface oozing, but no rapid welling up of blood or specific vessels actively bleeding. I placed two Surgicell over the raw surface. There was no further welling up of blood after that. I placed a 19 round ayana drain in through a 5mm incision in the right lower quadrant, and positioned it over the right retroperitoneum and down into the pelvis. I continued to irrigate and suction until there was minimal bloody fluid left in the pelvis. I then used the laparoscopic suture passer to place a trans abdominal suture across the umbilical port site incision with 0 Vicryl suture through the fascia, without removing the Montoya port or releasing the pneumoperitoneum due to COVID precautions. I then secured the UCHE drain with 2-0 Nylon suture to the skin. A filter was placed on the suprapubic port and the gas was released from the abdomen through that device. Once the pneumo was all out, I removed the ports and tied down the umbilical trans abdominal suture. I placed two additional 0 Vicryl sutures in the abdominal wall at that site, and additional local anesthetic to all port sites and drain site for a total of 50mL of 0.25% Marcaine with epi. At this point the remaining port sites were closed with, 3-0 Vicryl in the subcutaneous layers, and 4 Monocryl in the skin. Each port site was sealed with steri strips and covered with band aids. The UCHE drain site was dressed with 4x4's and tape. This concluded the procedure. At this point the needle sponge and instrument counts were correct. I scrubbed out and left the room. The patient was awakened from anesthesia and extubated by COVID protocol standards under the supervision of Dr. Salomon, our anesthesiologist. The patient was transferred to the postanesthesia care unit in stable condition. Complications: none Post-operative Condition: stable Disposition: PACU Plan for aftercare: Transfer to AC unit for obs
[2020-02-12] MEDS: ONDANSETRON 4 MG/2 ML INJ IV (17:34)
[2020-02-12] MEDS: fentaNYL 100 MCG/2 ML INJ IV (17:34)
[2020-02-12] MEDS: OXYCODONE/ACETAMINOPHEN 5/325 TABLET 1 TAB PO (17:35)
[2020-02-12] MEDS: LACTATED RINGERS 1,000 ML 42 ML IV ×2 (17:42→17:43)
[2020-02-12 17:52] LABS: Add Manual Diff / Slide Review NO; Basophils Absolute Auto 0 /uL (0-100); Basophils Percent Auto 0.2 % (0-2); Eosinophils Absolute Auto 100 /uL (0-450); Eosinophils Percent Auto 0.9 % (2-4); Hematocrit 32.5 % (41-53); Hemoglobin 11.5 g/dL (13.5-17.5); Lymphocytes Absolute Auto 1600 /uL (1100-4500); Lymphocytes Percent Auto 20.8 % (25-40); Mean Corpuscular HGB Conc 35.6 % (30-36); Mean Corpuscular Hemoglobin 29.8 PG (26-34); Mean Corpuscular Volume 83.9 fL (80-100); Monocytes Absolute Auto 500 /uL (0-900); Neutrophils Absolute Auto 5700 /uL (1500-7000); Neutrophils Percent Auto 72.1 % (50-75); Platelet Count 190 X10^3/uL (150-400); Red Blood Cell Count 3.87 X10^6/uL (4.5-5.9); Red Cell Distribution Width 14.7 % (11.6-14.8); White Blood Cell Count 7.9 X10^3/uL (4.5-11.0)
[2020-02-12] MEDS: PIPERACILLIN-TAZO 3.375 GM/50 ML FROZ.PIGGY IV (20:15)
[2020-02-12] MEDS: OXYCODONE IR 5 MG TABLET PO (20:15)
[2020-02-12] MEDS: PHENAZOPYRIDINE 100 MG TABLET PO (20:51)
[2020-02-12] MEDS: HYDROMORPHONE 1 MG INJ 0.5 MG IV (20:55)
[2020-02-13] VITALS (9 sets, daily range): BP systolic 110–132; BP diastolic 61–70; PULSE 62–129; RESP 16–18; TEMP 36.5–37.3; O2SAT 96–98
[2020-02-13] MEDS: PIPERACILLIN-TAZO 3.375 GM/50 ML FROZ.PIGGY IV ×3 (00:34→11:39)
[2020-02-13] MEDS: OXYCODONE IR 5 MG TABLET PO ×2 (00:34→04:31)
--- NOTE | 2020-02-13 03:58 | PC.NURSE ---
Addendum entered by Aga Montejo R.N. 02/13/20 04:31: Patient requesting PO pain management now. Stating pain is 7-8/10, FLACC for observable behavior is 1/10, flat affect. Appeared to dry swallow pill when given to him. Original Note: Answered call light, patient asking about pain medication, offered what was available, patient refusing PO pain meds and requesting IV only. Educated patient about use and purpose of IV pain medications vs. PO, patient said nevermind and covered his head with blanket.
[2020-02-13 05:25] LABS: Add Manual Diff / Slide Review NO; Basophils Absolute Auto 0 /uL (0-100); Basophils Percent Auto 0.3 % (0-2); Eosinophils Absolute Auto 100 /uL (0-450); Eosinophils Percent Auto 1.2 % (2-4); Hematocrit 33.2 % (41-53); Hemoglobin 11.9 g/dL (13.5-17.5); Lymphocytes Absolute Auto 1500 /uL (1100-4500); Lymphocytes Percent Auto 14.5 % (25-40); Mean Corpuscular HGB Conc 35.9 % (30-36); Mean Corpuscular Hemoglobin 29.9 PG (26-34); Mean Corpuscular Volume 83.2 fL (80-100); Monocytes Absolute Auto 700 /uL (0-900); Monocytes Percent Auto 6.7 % (3-14); Neutrophils Absolute Auto 8000 /uL (1500-7000); Neutrophils Percent Auto 77.3 % (50-75); Platelet Count 204 X10^3/uL (150-400); Red Blood Cell Count 3.99 X10^6/uL (4.5-5.9); Red Cell Distribution Width 14.7 % (11.6-14.8); White Blood Cell Count 10.4 X10^3/uL (4.5-11.0)
[2020-02-13 05:27] LABS: Fibrinogen 397 mg/dL (211-428)
--- NOTE | 2020-02-13 07:53 | P.PN_ITS ---
Subjective Subjective Date Patient Seen: 02/13/20 Time Patient Seen: 08:30 Interval history: No acute events overnight. The patient was admitted after abdominal washout. He required some IV pain medicine and antinausea medicine overnight. He tolerated clear liquids. He has not passed any gas or stool since surgery Exam Vital Signs (past 8 hours): - 02/13/20 00:40 02/13/20 01:00 02/13/20 04:00 Temperature 99.1 F Pulse Rate 66 Respiratory Rate 18 Blood Pressure 132/64 Pulse Oximetry 98 96 96 02/13/20 04:29 Temperature 98.8 F Pulse Rate 71 Respiratory Rate 18 Blood Pressure 110/70 Pulse Oximetry 96 Oxygen Delivery Method Room Air Oxygen Flow Rate 0 Narrative Exam Narrative: GENERAL: Alert, comfortable. Appears stated age. Answers questions promptly and appropriately. Vital signs noted. CARDIOVASCULAR: Regular rate. No pedal edema. RESPIRATORY: Non-tachypneic, breathing comfortably on room air. GASTROINTESTINAL: Abdomen soft and non-distended; large periumbilical ecchymosis, incisions clean dry and intact, UCHE drain with thin bloody output in the drainage bulb MUSCULOSKELETAL: Equal tone and mass bilaterally. SKIN: Warm, dry, soft, appropriate color for ethnicity. No other lesions, rashes, or wounds. NEURO: Alert and Oriented X 3. No gross sensory deficits, or cognitive issues. PSYCH: Appropriate affect and mood. Objective Labs Result Diagrams: 02/13/20 05:05 Labs: Laboratory Results - last 24 hr 02/12/20 02/12/20 02/12/20 11:50 11:50 17:45 WBC 6.8 7.9 RBC 3.58 L 3.87 L Hgb 10.7 L 11.5 L Hct 30.0 L 32.5 L MCV 83.7 83.9 MCH 29.8 29.8 MCHC 35.7 35.6 RDW 14.8 14.7 Plt Count 177 190 Neut % (Auto) 63.2 72.1 Lymph % (Auto) 27.4 20.8 L [place] % (Auto) 7.2 6.0 Eos % (Auto) 1.9 L 0.9 L Baso % (Auto) 0.3 0.2 Neut # (Auto) 4300 5700 Lymph # (Auto) 1900 1600 [place] # (Auto) 500 500 Eos # (Auto) 100 100 Baso # (Auto) 0 0 PT 11.1 INR 1.0 APTT 35 D Fibrinogen 02/13/20 02/13/20 05:05 05:05 WBC 10.4 RBC 3.99 L Hgb 11.9 L Hct 33.2 L MCV 83.2 MCH 29.9 MCHC 35.9 RDW 14.7 Plt Count 204 Neut % (Auto) 77.3 H Lymph % (Auto) 14.5 L [place] % (Auto) 6.7 Eos % (Auto) 1.2 L Baso % (Auto) 0.3 Neut # (Auto) 8000 H Lymph # (Auto) 1500 [place] # (Auto) 700 Eos # (Auto) 100 Baso # (Auto) 0 PT INR APTT Fibrinogen 397 Assessment & Plan Assessment and plan (1) Hematoma of abdominal wall: Qualifiers: Encounter type: initial encounter Qualified Code(s): S30.1XXA - Contusion of abdominal wall, initial encounter Current visit: Yes Status: Acute (2) Postoperative hematoma: Qualifiers: Procedure type: non-dermatologic Surgical complication system/body Area: subcutaneous tissue Qualified Code(s): L76.32 - Postprocedural hematoma o f skin and subcutaneous tissue following other procedure Current visit: No Status: Acute Assessment & Plan narrative: This is a 24-year-old man with postoperative bleed after his appendectomy, who came into the ER yesterday and had a wound exploration and washout of blood and clots from his abdomen. A drain was left in, which continues to put out very bloody drainage, however his hemoglobin is stable, and has increased slightly since his postoperative CBC. He is tolerating p.o., and ambulating, although he is having some nausea. Plan: advance diet as tolerated ambulate treat pain and nausea drain teaching dispo pending pain and nausea are controlled Time Spent With Patient Time with patient: 15-24 minutes Quality VTE Deep Vein Thrombosis/Pulmonary Embolism Present on Admission: No
[2020-02-13] MEDS: ONDANSETRON 4 MG/2 ML INJ IV ×2 (07:55→12:43)
[2020-02-13] MEDS: OXYCODONE IR 10 MG TABLET PO (07:56)
--- NOTE | 2020-02-13 10:22 | CM.DANOTE ---
Discharge Planning/Care Management DCP: assessment: case received, EMR reviewed. Discussed in Team Rounds and later with SIN Martinez. Met now with pt and introduced self and role. Pt is a 24 year old male who admitted yesterday afternoon to care of [facility] Surgeon: Dr. Matthews. Payer: Agatha Salinas. PCP: Rae Dickerson He was taken to surgery later in the day for a laproscopic Exploration/washout of blood and clots and placement of UCHE drain. Pt had a laproscopic appendectomy done at on 02/[address] Haynes and has been bleeding since that time. Pt reports he already feels much better, less pain. Dr. Matthews did see pt this morning and plans to return later today to see how he is doing. SIN Martinez says he may d/c later today but Dr. Matthews will make this decision later. He is expected to d/c with the drain in place. Pt confirms that when he is given ok for d/c he will call his Chief who will arrange tranport back to the [facility] for him. P: return to [facility] when stable for same, as per above, and clinic followup CM Discharge Assessment Start: 02/13/20 10:20 Freq: Status: Active Protocol: Document 02/13/20 10:21 ITV (Rec: 02/13/20 10:22 ITV [id number]) Discharge Planning Assessment Advance Directives? No History Provided By Patient,Medical Record Prior Living Arrangements Apartment/Condo Comment lives on [facility] Household Members none Independent with ADL's Yes Is patient alert and oriented? Yes Review Status In Process
--- NOTE | 2020-02-13 12:34 | PC.NURSE ---
Addendum entered by Michelle Lawson R.N. 02/13/20 15:23: Discharge instructions given to patient, discussed importance of F/U with either Dr. Matthews or Ivy, patient to call on Sunday and make appointment. Discussed importance of activity, new medications, and UCHE drain management. Verbalized understanding of instructions. IV out. In room dressed awaiting for family cotton picker operator, will call nurse when ready. Independent in room. Stable for discharge. Original Note: Day shift note: Patient c/o nausea, no emesis. Medicated with Zofran IV as ordered, adequate relief. Ambulated in hallway, tolerated well. No BM this shift. Patient demonstrated drain management, teaching performed. Drain amount 20 ml sanguinous drainage. Tolerating regular diet, in small amounts. Updated Dr. Matthews.
[2020-02-15 12:08] LABS: Von Willebrand Factor Antigen 105 % (50-200); von Willebrand Factor Activity 95 % (50-200)
[2020-02-24 17:36] LABS: Factor VIII Antigen 158 % (.)
== END 2020-02-13 15:50 | disposition home or self-care (01) ==
LOC: ED 12:25 → AC 12:55
PROVIDERS: Admitting Provider Surgery; Emergency Provider Emergency Medicine; Referring Provider Emergency Medicine; Visit Provider Surgery
PROC: (CPT 49322; principal; 2020-02-12 14:00)
DX: K91.841 Postprocedural hemorrhage of a digestive system organ or structure following other procedure (principal); L76.32 Postprocedural hematoma of skin and subcutaneous tissue following other procedure; S30.1XXA Contusion of abdominal wall, initial encounter
CPT/HCPCS: 49322; 36415; 76705; 83520; 85025; 85245; 85246; 85250; 85384; 85610; 85730; 96361; 96365; 96366; 96375; 96376; 99219; 99283; G0378; J0690; J1170; J2405; J2543; J2704; J3010